=== PATIENT | male | born 1965 | race African-American/Black ===

== ENCOUNTER 2022-05-13 08:43 | Emergency (ER) | payer OTHER ==
[2022-05-13 09:02] VITALS: BP 97/71; PULSE 90; RESP 17; TEMP 98.2; BMI 25.0
[2022-05-13] MEDS ORDERED: chlorproMAZINE HCL 25 MG/1 ML AMP IVPB ONE (09:41)
[2022-05-13] MEDS ORDERED: FAMOTIDINE 20 MG/50 ML IVPB 20 MG/50 ML MG IVPB ONE ×2 (09:48→10:11)
[2022-05-13] MEDS ORDERED: MAG HYDROX/AL HYDROX/SIMETH 30 ML UNIT-DOSE CUP PO ONE (09:48)
[2022-05-13] MEDS ORDERED: chlorproMAZINE HCL 25 MG/1 ML AMP ONE (10:11)
[2022-05-13] MEDS ORDERED: MAG HYDROX/AL HYDROX/SIMETH 30 ML UNIT-DOSE CUP ONE (10:11)
[2022-05-13 10:18] LABS: BASO % 1.1 % (0-2.0); EOS % 1.4 % (0-4.5); HEMATOCRIT 30.5 % (35.4-49); HEMOGLOBIN 9.9 GM/dL (11.7-16.9); LYMPH % 30.5 % (8-40); MCH 28.6 pg (25.7-33.7); MCHC 32.5 g/dl (32.0-35.9); MEAN CELL VOLUME 88.1 fl (80-96); MEAN PLT VOLUME 8.8 fl (7.5-11.1); MONO % 10.8 % (3.8-10.2); NEUT % 56.2 % (42.8-82.8); PLATELET COUNT 178 10^3/uL (134-434); RBC 3.47 M/mm3 (4.00-5.60); RDW 16.2 % (11.9-15.9); WHITE BLOOD COUNT 6.9 K/mm3 (4.0-10.0)
[2022-05-13 10:43] LABS: CALCIUM 8.2 mg/dL (8.5-10.1)
[2022-05-13 10:44] LABS: ALBUMIN 2.6 g/dl (3.4-5.0); BLOOD UREA NITROGEN 3.5 mg/dL (7-18)
[2022-05-13 10:46] LABS: CREATININE 0.9 mg/dL (0.55-1.3)
[2022-05-13 10:47] LABS: BILIRUBIN,TOTAL 1.8 mg/dL (0.2-1)
[2022-05-13 10:49] LABS: TOT PROT 6.7 g/dl (6.4-8.2)
== END 2022-05-13 13:15 | disposition home or self-care (01) ==
LOC: JER 08:43
PROC: 3E033GC Introduction of Other Therapeutic Substance into Peripheral Vein, Percutaneous Approach (ICD-10-PCS; principal; 2022-05-13)
PROC: 3E033GC Introduction of Other Therapeutic Substance into Peripheral Vein, Percutaneous Approach (ICD-10-PCS; 2022-05-13)
DX: R06.6 Hiccough (principal)
CPT/HCPCS: 36415; 71045-TC-FY; 80053; 83690; 84484; 85025; 93005; 93010; 99285-25

== ENCOUNTER 2022-05-16 21:26 | Emergency (ER) | payer OTHER ==
[2022-05-16 21:32] VITALS: BP 128/91; PULSE 100; RESP 19; TEMP 98.6; BMI 26.4
[2022-05-16] MEDS ORDERED: COLCHICINE 0.6 MG CAP PO ONE (22:33)
[2022-05-16] MEDS ORDERED: COLCHICINE 0.6 MG TAB ONE (22:40)
== END 2022-05-16 22:44 | disposition home or self-care (01) ==
LOC: JERFT 21:26
DX: M10.9 Gout, unspecified (principal)
CPT/HCPCS: 99283-25